=== PATIENT | female | born 1940 | race African-American/Black ===

== ENCOUNTER 2016-09-05 10:09 | Emergency (ER) | payer MEDICARE, OTHER ==
[2016-09-05] MEDS ORDERED: OPTIRAY 350 100 ML VIAL EDI IV ONE (10:10)
[2016-09-05] MEDS ORDERED: MORPHINE 4 MG/ML SYR ONE (11:34)
[2016-09-05] MEDS ORDERED: KETOROLAC 60 MG/2 ML VIAL IM ONE (13:21)
== END 2016-09-05 17:21 | disposition home or self-care (01) ==
LOC: ER 10:09
DX: M54.42 Lumbago with sciatica, left side (principal)
CPT/HCPCS: 74020; 74174; 80047; 85014; 96372; 99285; J2270; Q9967

== ENCOUNTER 2016-09-06 12:39 | Emergency (ER) | payer MEDICARE, OTHER ==
[2016-09-06] MEDS ORDERED: DIAZEPAM 10 MG/2 ML SYR ONE (13:02)
[2016-09-06] MEDS ORDERED: DILAUDID 1 MG/ML AMP ONE (13:02)
== END 2016-09-06 14:57 | disposition home or self-care (01) ==
LOC: ER 12:39
DX: M54.42 Lumbago with sciatica, left side (principal); K59.00 Constipation, unspecified
CPT/HCPCS: 96374; 96375; 99284; J1170